=== PATIENT | male | born 1975 | race Caucasian/White ===

== ENCOUNTER 2021-01-07 21:13 | Emergency (ER) | payer BC, SELFPAY ==
[2021-01-07 21:48] VITALS: BP 150/89; PULSE 70; RESP 14; TEMP 36.8; O2SAT 95; BMI 28.2
--- NOTE | 2021-01-07 22:01 | XRR_ITS ---
PROCEDURE INFORMATION: Exam: XR Chest Exam date and time: 01/07/2021 10:36 PM Age: 45 years old Clinical indication: Dyspnea; Additional info: SOB TECHNIQUE: Imaging protocol: XR of the chest Views: 1 view. COMPARISON: No relevant prior studies available. FINDINGS: Lungs: There are some increased interstitial markings seen in the lower hemithoraces bilaterally, left more prominent than right, findings could represent mild pulmonary edema although a bilateral basilar atelectasis or interstitial pneumonitis cannot be entirely excluded. Pleural spaces: Unremarkable. No pleural effusion. No pneumothorax. Heart/Mediastinum: Unremarkable. No cardiomegaly. Bones/joints: Unremarkable. XR/XR chest 1V portable [id number] IMPRESSION: Increased interstitial opacities in the lower hemithoraces, left prominent than right may represent mild asymmetric pulmonary edema although bilateral basilar atelectasis and pneumonitis cannot be entirely excluded.
--- NOTE | 2021-01-07 22:03 | ECG_ITS ---
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
[2021-01-07 22:37] VITALS: O2SAT 97
--- NOTE | 2021-01-07 22:37 | PC.NURSE ---
EKG taken and given to Dr. Sutherland
[2021-01-07 22:47] LABS: Basophils % 0.7 %; Eosinophils # 0.2 10^3/uL (0.0-0.8); Eosinophils % 4.5 %; Hemoglobin 15.6 g/dL (11.7-16.6); Lymphocytes # 1.5 10^3/uL (0.8-4.8); Lymphocytes % 35.2 %; Mean Corpuscular HGB Conc 33.2 g/dL (30.0-36.0); Mean Corpuscular Hemoglobin 32.2 pg (28.0-34.0); Mean Corpuscular Volume 96.9 fL (80-94); Mean Platelet Volume 9.4 fL (7.4-10.4); Monocytes # 0.7 10^3/uL (0.2-0.9); Monocytes % 15.6 %; Neutrophils # 1.84 10^3/uL (1.8-7.7); Neutrophils % 43.5 %; Nucleated Red Blood Cells % 0 %; Platelet Count 207 10^3/cmm (130-400); Red Blood Count 4.85 10^6/uL (4.1-5.3); Red Cell Distribution Width 11.7 % (12.1-15.1); White Blood Count 4.2 10^3/uL (4.0-10.0)
[2021-01-07 23:00] LABS: Lactic Sepsis W/Reflex 1.1 mmol/L (0.5-2.2)
[2021-01-07 23:01] LABS: Troponin(5th) Baseline 7 ng/L (0-15)
[2021-01-07 23:10] LABS: Procalcitonin 0.08 ng/mL (0-0.5)
[2021-01-07 23:11] LABS: D Dimer <= 0.27 ug/mIFEU (0-0.59)
[2021-01-07 23:22] LABS: Alanine Aminotransferase 44 U/L (0-41); Albumin Level 4.4 g/dL (3.5-5.2); Alkaline Phosphatase 96 IU/L (40-130); Anion Gap 13.2 (5-19); Aspartate Amino Transferase 24 U/L (0-40); Blood Urea Nitrogen 14 mg/dL (6-20); Calcium 9.1 mg/dL (8.5-10.5); Carbon Dioxide 26 mmol/L (22-29); Chloride 105 mmol/L (98-107); Globulin 2.5 g/dL (1.3-4.6); Glomerular Filtration Rate 103.6 mL/min (90-130); Glucose 110 mg/dL (65-115); Osmolality Calculated 291 mOsm/kg (285-295); Potassium 4.2 mmol/L (3.5-5.1); Sodium 140 mmol/L (136-145); Total Bilirubin 0.2 mg/dL (0.15-1.2); Total Protein 6.9 g/dL (6.6-8.7)
--- NOTE | 2021-01-07 23:37 | W.ED.COVID ---
HPI - COVID General: Chief Complaint: COVID symptoms Stated Complaint: covid +, SOB and has asthma Time Seen by Provider: 01/07/21 21:43 Triage information: Has fever, cough or shortness of breath. Exposure to COVID + person last 14 days History of Present Illness: HPI Narrative: 45-year-old male presents with right-sided chest discomfort and shortness of breath. He was diagnosed with COVID-19 on the fourth. He notes that he has had a headache, and some upper respiratory symptoms for over a week. Tonight, with a chest discomfort and shortness of breath worsened, he became worried because of his history of asthma. He is not really coughing much. He is not producing any sputum. He has not had a fever. MD complaint: known COVID positive and has COVID symptoms COVID 19 common symptoms: positive cough (Mild), dyspnea, headache(s) and diarrhea (Mild); negative fever(s) or chills COVID 19 other sytmptoms: positive chest pain and pleuritic pain; negative requiring oxygen Onset (ago): day(s) Severity: moderate Pertinent comorbid conditions: COPD/respiratory disease (Asthma history) Treatment prior to arrival: ibuprofen COVID Results: No Data to Display Review of Systems Const: Denies: fever(s) or chills Card: Reports: chest pain Resp: Reports: dyspnea GI: Reports: diarrhea (Mild) Neuro: Reports: headache(s) Physical Exam Const: GENERAL APPEARANCE: well developed ORIENTATION/CONSCIOUSNESS: Yes oriented to person, Yes oriented to place and Yes oriented to time HENMT: COMMON NORMALS: normocephalic, external ears normal and Normal external nose present HEAD & SCALP: normocephalic FACE & SINUS: normal facial exam NOSE: Normal external nose present and No nasal discharge present EXTERNAL EAR: Yes external ears normal Eye: COMMON NORMALS: Equal, round and reactive pupils present, EOMs intact bilaterally and conjunctivae normal EYELID: eyelids normal CONJUNCTIVA: Yes conjunctivae normal PUPIL: Yes Equal, round and reactive pupils present Neck/C-Spine: GENERAL: No tracheal deviation Chest: COMMONS NORMALS: normal inspection of the chest CHEST: No tenderness Resp: COMMON NORMALS: clear to auscultation bilaterally EFFORT & INSPECTION: No tachypneic, No respiratory distress, No retractions, No uses accessory muscles and No tracheal deviation AUSCULTATION: clear to auscultation bilaterally, no rhonchi, no wheezes and lung sounds not diminished Cardio: COMMON NORMALS: regular rate and regular rhythm RATE: regular rate RHYTHM: regular rhythm HEART SOUNDS: no murmurs PERIPHERAL PULSES: radial pulses present GI: INSPECTION: No abdominal distension AUSCULTATION: No Hyperactive bowel sounds present and No Hypoactive bowel sounds present PALPATION: No Guarding due to palpation present (GI) and No Rigid due to palpation PERCUSSION: no dullness to percussion and no tympanic to percussion Neuro: SENSORIUM/ORIENTATION: Yes oriented to person, Yes oriented to place and Yes oriented to time Psych: COMMON NORMALS: mental status grossly normal Skin: COMMON NORMALS: no rashes or lesions noted GENERAL SKIN EXAM: no rashes or lesions noted Course Vital Signs: Vital signs: Vital Signs Temperature 98.3 F 01/07/21 21:48 Pulse Rate 70 01/07/21 21:48 Respiratory Rate 14 01/07/21 21:48 Blood Pressure 150/89 01/07/21 21:48 Pulse Oximetry 97 01/07/21 22:37 MDM - COVID MDM Narrative: Medical decision making narrative: 45-year-old male with a history of asthma. He presents after becoming more short of breath tonight and having some right-sided pleuritic type chest pain. He has known Covid 19. His chest x-ray shows minimal infiltrates. His white blood cell count is 4.2. His pro calcitonin is negative. His D-dimer is nondetectable. His troponin is normal. His EKG shows a sinus bradycardia with no acute ST changes. He will be discharged home. Lab Data: Labs: Lab Results 01/07/21 01/07/21 01/07/21 Range/Units 22:30 22:30 22:30 WBC 4.2 (4.0-10.0) 10^3/ uL RBC 4.85 (4.1-5.3) 10^6/u L Hgb 15.6 (11.7-16.6) g/dL Hct 47.0 (42.0-52.0) % MCV 96.9 H (80-94) fL MCH 32.2 (28.0-34.0) pg MCHC 33.2 (30.0-36.0) g/dL RDW 11.7 L (12.1-15.1) % Plt Count 207 (130-400) 10^3/c mm MPV 9.4 (7.4-10.4) fL Neut % (Auto) 43.5 % Lymph % (Auto) 35.2 % [place] % (Auto) 15.6 % Eos % (Auto) 4.5 % Baso % (Auto) 0.7 % Neut # (Auto) 1.84 (1.8-7.7) 10^3/u L Lymph # (Auto) 1.5 (0.8-4.8) 10^3/u L [place] # (Auto) 0.7 (0.2-0.9) 10^3/u L Eos # (Auto) 0.2 (0.0-0.8) 10^3/u L Baso # (Auto) 0.0 (0.0-0.1) 10^3/u L Nucleated RBC % (a uto) 0 % Nucleated RBCs # 0.0 /100WBC D-Dimer <= 0.27 (0-0.59) ug/mIFE U Sodium 140 (136-145) mmol/L Potassium 4.2 (3.5-5.1) mmol/L Chloride 105 (98-107) mmol/L Carbon Dioxide 26 (22-29) mmol/L Anion Gap 13.2 (5-19) BUN 14 (6-20) mg/dL Creatinine 0.8 (0.7-1.2) mg/dL GFR Calculation 103.6 (90-130) mL/min Glucose 110 (65-115) mg/dL Calculated Osmolal ity 291 (285-295) mOsm/k g Lactic Acid (0.5-2.2) mmol/L Calcium 9.1 (8.5-10.5) mg/dL Total Bilirubin 0.2 (0.15-1.2) mg/dL AST 24 (0-40) U/L ALT 44 H (0-41) U/L Alkaline Phosphata se 96 (40-130) IU/L Troponin T Baselin e (0-15) ng/L C-Reactive Protein 2.0 (0.0-4.9) mg/L Total Protein 6.9 (6.6-8.7) g/dL Albumin 4.4 (3.5-5.2) g/dL Globulin 2.5 (1.3-4.6) g/dL Procalcitonin 0.08 (0-0.5) ng/mL 01/07/21 01/07/21 Range/Units 22:30 22:30 WBC (4.0-10.0) 10^3/ uL RBC (4.1-5.3) 10^6/u L Hgb (11.7-16.6) g/dL Hct (42.0-52.0) % MCV (80-94) fL MCH (28.0-34.0) pg MCHC (30.0-36.0) g/dL RDW (12.1-15.1) % Plt Count (130-400) 10^3/c mm MPV (7.4-10.4) fL Neut % (Auto) % Lymph % (Auto) % [place] % (Auto) % Eos % (Auto) % Baso % (Auto) % Neut # (Auto) (1.8-7.7) 10^3/u L Lymph # (Auto) (0.8-4.8) 10^3/u L [place] # (Auto) (0.2-0.9) 10^3/u L Eos # (Auto) (0.0-0.8) 10^3/u L Baso # (Auto) (0.0-0.1) 10^3/u L Nucleated RBC % (a uto) % Nucleated RBCs # /100WBC D-Dimer (0-0.59) ug/mIFE U Sodium (136-145) mmol/L Potassium (3.5-5.1) mmol/L Chloride (98-107) mmol/L Carbon Dioxide (22-29) mmol/L Anion Gap (5-19) BUN (6-20) mg/dL Creatinine (0.7-1.2) mg/dL GFR Calculation (90-130) mL/min Glucose (65-115) mg/dL Calculated Osmolal ity (285-295) mOsm/k g Lactic Acid 1.1 (0.5-2.2) mmol/L Calcium (8.5-10.5) mg/dL Total Bilirubin (0.15-1.2) mg/dL AST (0-40) U/L ALT (0-41) U/L Alkaline Phosphata se (40-130) IU/L Troponin T Baselin e 7 (0-15) ng/L C-Reactive Protein (0.0-4.9) mg/L Total Protein (6.6-8.7) g/dL Albumin (3.5-5.2) g/dL Globulin (1.3-4.6) g/dL Procalcitonin (0-0.5) ng/mL COVID Results: No Data to Display Discharge Plan Discharge Patient Disposition: Home Clinical Impression: Pneumonia due to 2019 novel coronavirus Condition: Stable Prescriptions: New dexamethasone 6 mg tablet 6 mg PO DAILY Qty: 5 RF: 0 albuterol sulfate 90 mcg/actuation HFA aerosol inhaler 2 inh INHALATION Q4H PRN (Reason: shortness of breath or wheezing) Qty: 6.7 RF: 1 Discharge Orders: Discharge ED (Routine); Ordered 01/07/21 Ordered By: Danilo Sutherland Discharge Diet: Usual diet Discharge Activity: Increase activity as tolerated Patient Instructions: Viral Pneumonia (ED) Activity Restrictions/Additional Instructions: Stay quarantined at home until you are quarantine in the date. Return to the ER for worsening shortness of breath despite treatment, worsening chest pain, mental status changes, inability to control fever, other concerning symptoms. Coding Level of Care Code ED [facility] Director for Reba Lopez
[2021-01-08 00:07] VITALS: BP 136/78; PULSE 61; RESP 17; O2SAT 96
== END 2021-01-08 00:07 | disposition home or self-care (01) ==
PROVIDERS: Emergency Provider Emergency Medicine
DX: U07.1 COVID-19 (principal); J12.82 Pneumonia due to coronavirus disease 2019
CPT/HCPCS: 71045; 80053; 83605; 84145; 84484; 85025; 85378; 86140; 87040; 93005; 99284

== ENCOUNTER 2021-01-14 18:55 | Emergency (ER) | payer BC, SELFPAY ==
--- NOTE | 2021-01-14 19:13 | XRR_ITS ---
PROCEDURE INFORMATION: Exam: XR Chest Exam date and time: 01/14/2021 7:44 PM Age: 45 years old Clinical indication: Dyspnea; Additional info: Pneumonia, covid TECHNIQUE: Imaging protocol: XR of the chest Views: 1 view. COMPARISON: CR XR chest 1V portable [id number] 01/07/2021 10:07 PM FINDINGS: Lungs: Mild coarsening of the interstitial markings, unchanged. No airspace infiltrates. Pleural spaces: Unremarkable. No pleural effusion. No pneumothorax. Heart/Mediastinum: No cardiomegaly. Bones/joints: Degenerative spine changes are noted. XR/XR chest 1V portable [id number] IMPRESSION: 1. Mild coarsening of the interstitial markings, unchanged. No airspace infiltrates. 2. There is no interval change from the prior examination. No radiographic evidence of acute pneumonia.
[2021-01-14 19:21] VITALS: BP 155/75; PULSE 74; RESP 16; TEMP 36.9; O2SAT 96; BMI 29.5
[2021-01-14 20:37] VITALS: O2SAT 94
[2021-01-14 21:07] LABS: Alanine Aminotransferase 45 U/L (0-41); Albumin Level 3.9 g/dL (3.5-5.2); Alkaline Phosphatase 89 IU/L (40-130); Anion Gap 11.8 (5-19); Aspartate Amino Transferase 17 U/L (0-40); Blood Urea Nitrogen 18 mg/dL (6-20); C Reactive Protein 0.6 mg/L (0.0-4.9); Calcium 8.9 mg/dL (8.5-10.5); Carbon Dioxide 29 mmol/L (22-29); Chloride 101 mmol/L (98-107); Globulin 2.5 g/dL (1.3-4.6); Glomerular Filtration Rate 90.4 mL/min (90-130); Glucose 100 mg/dL (65-115); Osmolality Calculated 288 mOsm/kg (285-295); Potassium 3.8 mmol/L (3.5-5.1); Sodium 138 mmol/L (136-145); Total Bilirubin 0.2 mg/dL (0.15-1.2); Total Protein 6.4 g/dL (6.6-8.7)
[2021-01-14 21:13] VITALS: PULSE 73; RESP 17; O2SAT 94
--- NOTE | 2021-01-14 21:14 | ED_ITS ---
HPI - COVID General: Chief Complaint: COVID symptoms Stated Complaint: Headache, fatigue, SOB, CONGES covid + in covid wr Time Seen by Provider: 01/14/21 20:28 Triage information: Has fever, cough or shortness of breath . No known COVID + exposure last 14 days History of Present Illness: HPI Narrative: 45-year-old male with a history of asthma. He has COVID-19, and was off quarantine yesterday. He presents with continued symptoms. He was placed on steroids on the last visit last weekend, and finished those 2 days ago. He notes immediately following his popping steroids, of a resurgence of chest discomfort mainly burning sensation in his bilateral and some shortness of breath. Shortness of breath worsens with exertion. He has had some wheezing as well. He says his albuterol inhaler helps to some degree with this. Minimal cough. Does have some phlegm in his throat. No diarrhea. He does have a headache intermittently. MD complaint: known COVID positive Prior covid testing: yes, results known COVID 19 common symptoms: positive cough, non-productive cough, dyspnea, fatigue, headache(s) and throat pain (Mild); negative fever(s), chills, productive cough, body aches, nausea, vomiting or diarrhea COVID 19 other sytmptoms: positive chest pain (Burning to bilateral lower chest) Severity: moderate and slowly worsening Pertinent comorbid conditions: diabetes, hypertension, heart disease and other (Asthma) COVID Results: No Data to Display Review of Systems Const: Reports: fatigue; Denies: fever(s), chills or body aches ENMT: Reports: throat pain (Mild) Card: Reports: chest pain (Burning to bilateral lower chest) Resp: Reports: dyspnea and non-productive cough; Denies: productive cough GI: Denies: nausea, vomiting or diarrhea Neuro: Reports: headache(s) Physical Exam Const: GENERAL APPEARANCE: well developed ORIENTATION/CONSCIOUSNESS: Yes oriented to person, Yes oriented to place and Yes oriented to time HENMT: COMMON NORMALS: normocephalic, external ears normal and Normal external nose present HEAD & SCALP: normocephalic FACE & SINUS: normal facial exam NOSE: Normal external nose present and No nasal discharge present EXTERNAL EAR: Yes external ears normal Eye: COMMON NORMALS: Equal, round and reactive pupils present, EOMs intact bilaterally and conjunctivae normal EYELID: eyelids normal CONJUNCTIVA: Yes conjunctivae normal PUPIL: Yes Equal, round and reactive pupils present Neck/C-Spine: GENERAL: No tracheal deviation Chest: COMMONS NORMALS: normal inspection of the chest CHEST: No tenderness Resp: COMMON NORMALS: clear to auscultation bilaterally EFFORT & INSPECTION: No tachypneic, No respiratory distress, No retractions, No uses accessory muscles and No tracheal deviation AUSCULTATION: clear to auscultation bilaterally, no rhonchi, no wheezes and lung sounds not diminished Cardio: COMMON NORMALS: regular rate and regular rhythm RATE: regular rate RHYTHM: regular rhythm HEART SOUNDS: no murmurs PERIPHERAL PULSES: radial pulses present GI: INSPECTION: No abdominal distension AUSCULTATION: No Hyperactive bowel sounds present and No Hypoactive bowel sounds present PALPATION: No Guarding due to palpation present (GI) and No Rigid due to palpation PERCUSSION: no dullness to percussion and no tympanic to percussion Neuro: SENSORIUM/ORIENTATION: Yes oriented to person, Yes oriented to place and Yes oriented to time Psych: COMMON NORMALS: mental status grossly normal Skin: COMMON NORMALS: no rashes or lesions noted GENERAL SKIN EXAM: no rashes or lesions noted Course Vital Signs: Vital signs: Vital Signs Temperature 98.4 F 01/14/21 19:21 Pulse Rate 62 01/14/21 22:48 Respiratory Rate 12 01/14/21 22:48 Blood Pressure 122/69 01/14/21 22:48 Pulse Oximetry 96 01/14/21 22:48 MDM - COVID MDM Narrative: Medical decision making narrative: 45-year-old male with a history of COVID-19. He also has a history of asthma. He noted increase in wheezing with an increase in shortness of breath and burning in his chest following stopping steroids a couple of days ago. His albuterol inhaler is helping. His oxygen saturations have been above 94% on room air with respiratory rates from 15-24. His heart rate is 60. He will be discharged home on a tapering dose of steroid and will be covered with doxycycline. His chest x-ray looks mildly improved from prior. Lab Data: Labs: Lab Results 01/14/21 01/14/21 01/14/21 Range/Units 20:20 20:31 20:31 WBC 10.1 H (4.0-10.0) 10^3/ uL RBC 4.74 (4.1-5.3) 10^6/u L Hgb 15.2 (11.7-16.6) g/dL Hct 46.2 (42.0-52.0) % MCV 97.5 H (80-94) fL MCH 32.1 (28.0-34.0) pg MCHC 32.9 (30.0-36.0) g/dL RDW 11.8 L (12.1-15.1) % Plt Count 244 (130-400) 10^3/c mm MPV 9.7 (7.4-10.4) fL Neut % (Auto) 50.0 % Lymph % (Auto) 32.1 % [place] % (Auto) 10.2 % Eos % (Auto) 2.7 % Baso % (Auto) 0.8 % Neut # (Auto) 5.04 (1.8-7.7) 10^3/u L Lymph # (Auto) 3.2 (0.8-4.8) 10^3/u L [place] # (Auto) 1.0 H (0.2-0.9) 10^3/u L Eos # (Auto) 0.3 (0.0-0.8) 10^3/u L Baso # (Auto) 0.1 (0.0-0.1) 10^3/u L Nucleated RBC % (a uto) 0 % Nucleated RBCs # 0.0 /100WBC D-Dimer <= 0.27 (0-0.59) ug/mIFE U Sodium 138 (136-145) mmol/L Potassium 3.8 (3.5-5.1) mmol/L Chloride 101 (98-107) mmol/L Carbon Dioxide 29 (22-29) mmol/L Anion Gap 11.8 (5-19) BUN 18 (6-20) mg/dL Creatinine 0.9 (0.7-1.2) mg/dL GFR Calculation 90.4 (90-130) mL/min Glucose 100 (65-115) mg/dL Calculated Osmolal ity 288 (285-295) mOsm/k g Calcium 8.9 (8.5-10.5) mg/dL Total Bilirubin 0.2 (0.15-1.2) mg/dL AST 17 (0-40) U/L ALT 45 H (0-41) U/L Alkaline Phosphata se 89 (40-130) IU/L C-Reactive Protein 0.6 (0.0-4.9) mg/L Total Protein 6.4 L (6.6-8.7) g/dL Albumin 3.9 (3.5-5.2) g/dL Globulin 2.5 (1.3-4.6) g/dL COVID Results: No Data to Display Discharge Plan Discharge Patient Disposition: Home Clinical Impression: Pneumonia due to 2019 novel coronavirus Condition: Stable Prescriptions: New prednisone 10 mg tablet See Rx Instructions .ROUTE .COMPLEX Qty: 28 RF: 0 doxycycline hyclate 100 mg capsule 100 mg PO BID 7 Days Qty: 14 RF: 0 No Action dexamethasone 6 mg tablet 6 mg PO DAILY Qty: 5 RF: 0 albuterol sulfate 90 mcg/actuation HFA aerosol inhaler 2 inh INHALATION Q4H PRN (Reason: shortness of breath or wheezing) Qty: 6.7 RF: 1 Discharge Orders: Discharge ED (Routine); Ordered 01/14/21 Ordered By: Danilo Sutherland Discharge Diet: Usual diet Discharge Activity: Increase activity as tolerated Patient Instructions: Asthma (ED), Viral Pneumonia (ED) Activity Restrictions/Additional Instructions: Return for worsening chest discomfort or shortness of breath despite treatment, fever greater than 100 despite 2-3 doses of antibiotics, any worsening or other concerning symptoms peer Coding Level of Care Code ED Agricultural Equipment 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
[2021-01-14 21:24] LABS: Basophils # 0.1 10^3/uL (0.0-0.1); Basophils % 0.8 %; Eosinophils # 0.3 10^3/uL (0.0-0.8); Eosinophils % 2.7 %; Hematocrit 46.2 % (42.0-52.0); Hemoglobin 15.2 g/dL (11.7-16.6); Lymphocytes # 3.2 10^3/uL (0.8-4.8); Lymphocytes % 32.1 %; Mean Corpuscular HGB Conc 32.9 g/dL (30.0-36.0); Mean Corpuscular Hemoglobin 32.1 pg (28.0-34.0); Mean Corpuscular Volume 97.5 fL (80-94); Mean Platelet Volume 9.7 fL (7.4-10.4); Monocytes % 10.2 %; Neutrophils # 5.04 10^3/uL (1.8-7.7); Nucleated Red Blood Cells % 0 %; Platelet Count 244 10^3/cmm (130-400); Red Blood Count 4.74 10^6/uL (4.1-5.3); Red Cell Distribution Width 11.8 % (12.1-15.1); White Blood Count 10.1 10^3/uL (4.0-10.0)
[2021-01-14 21:40] LABS: D Dimer <= 0.27 ug/mIFEU (0-0.59)
[2021-01-14 22:22] VITALS: BP 117/84; PULSE 69; RESP 14; O2SAT 95
[2021-01-14] MEDS: dexamethasone 4 mg Tablet 10 MG PO (22:41)
[2021-01-14 22:48] VITALS: BP 122/69; PULSE 62; RESP 12; O2SAT 96
== END 2021-01-14 22:48 | disposition home or self-care (01) ==
PROVIDERS: Nurse Practitioner Family; Emergency Provider Emergency Medicine
DX: U07.1 COVID-19 (principal); J12.82 Pneumonia due to coronavirus disease 2019
CPT/HCPCS: 71045; 80053; 85025; 85378; 86140; 99283; J8540

== ENCOUNTER → 2021-01-24 12:51 | Outpatient (BNVA) | payer SELFPAY | PROVIDERS: PCP Nurse Practitioner Family; Visit Provider Nurse Practitioner Family | DX: R06.02 Shortness of breath (principal); U07.1 COVID-19; J12.89 Other viral pneumonia | CPT/HCPCS: 71046 ==

== ENCOUNTER → 2021-04-14 14:06 | Outpatient (BNVA) | payer SELFPAY | PROVIDERS: PCP Nurse Practitioner Family; Visit Provider Nurse Practitioner Family | DX: R10.84 Generalized abdominal pain (principal); R53.83 Other fatigue; Z79.899 Other long term (current) drug therapy; Z13.6 Encounter for screening for cardiovascular disorders; E55.9 Vitamin D deficiency, unspecified | CPT/HCPCS: 74018 ==

== ENCOUNTER → 2021-04-19 13:06 | Outpatient (BNVA) | payer SELFPAY | PROVIDERS: PCP Nurse Practitioner Family; Visit Provider Nurse Practitioner Family | DX: E55.9 Vitamin D deficiency, unspecified (principal) | CPT/HCPCS: 85025 ==

== ENCOUNTER → 2021-04-21 16:10 | Outpatient (BNVA) | payer SELFPAY | PROVIDERS: PCP Nurse Practitioner Family; Visit Provider Nurse Practitioner Family | DX: R10.84 Generalized abdominal pain (principal) | CPT/HCPCS: 82270 ==

== ENCOUNTER → 2021-04-27 10:02 | Outpatient (BNVA) | payer SELFPAY | PROVIDERS: PCP Nurse Practitioner Family; Visit Provider Nurse Practitioner Family | DX: R10.84 Generalized abdominal pain (principal); Z13.6 Encounter for screening for cardiovascular disorders; R53.83 Other fatigue; Z79.899 Other long term (current) drug therapy; E55.9 Vitamin D deficiency, unspecified | CPT/HCPCS: 80053; 80061; 81003; 82150; 83036; 83690; 84439; 84443; 85025; 85651; 86140 ==

== ENCOUNTER 2021-05-12 11:33 | Outpatient (CLI) | payer SELFPAY ==
--- NOTE | 2021-05-12 11:40 | XR_ITS ---
WS: [id number] KUB, AP view, 05/12/2021 Clinical Data: R10.9 - Unspecified abdominal pain Comparison: KUB, 04/14/2021. Findings: No abnormal intra-abdominal masses or calcifications are seen. There is no evidence of any bowel dila tation or obstruction. There is fecal material in a sending colon. The bladder is full. XR/XR KUB [id number] Impression: Negative KUB.
--- NOTE | 2021-05-12 12:30 | US_ITS ---
WS: [id number] Complete ABDOMINAL ULTRASOUND HISTORY: R10.9 - Unspecified abdominal pain COMPARISON: None available. Liver: 20.4 cm in length. Liver is mildly enlarged. No mass or bile duct dilatation. Gallbladder: Normally distended with no gallstones, wall thickening or pericholecystic fluid. Gallbladder wall thickness: 0.2 cm. Pancreas: Normal size and echogenicity. CBD: 0.5 cm. Right kidney: 11.7 cm x 4.7 cm x 5.0 cm. No mass, cortical thickening or hydronephrosis. Left kidney: 13.3 cm x 5.3 cm x 6.7 cm. No mass, cortical thickening or hydronephrosis. Spleen: Normal size and echogenicity. Abdominal aorta and IVC are within normal limits. No ascites. US/US abdomen complete* [id number] IMPRESSION: 1. Normal gallbladder. 2. No bile duct dilatation. 3. Minimal hepatic enlargement.
== END 2021-05-12 11:34 | disposition home or self-care (01) ==
LOC: RAD 11:35
PROVIDERS: PCP Nurse Practitioner Family; Visit Provider Nurse Practitioner Family
DX: R10.9 Unspecified abdominal pain (principal)
CPT/HCPCS: 74018; 76700

== ENCOUNTER 2021-06-09 14:26 | Outpatient (CLI) | payer SELFPAY ==
--- NOTE | 2021-06-09 14:32 | XRR_ITS ---
PROCEDURE INFORMATION: Exam: XR Chest Exam date and time: 06/09/2021 2:32 PM Age: 45 years old Clinical indication: Cough; Additional info: R05 - cough TECHNIQUE: Imaging protocol: XR of the chest. Views: 2 views. COMPARISON: CR XR chest 2V* [id number] 01/24/2021 1:06 PM FINDINGS: Lungs: Unremarkable. No consolidation. Pleural spaces: Unremarkable. No pleural effusion. No pneumothorax. Heart/Mediastinum: Unremarkable. No cardiomegaly. Bones/joints: Unremarkable. XR/XR chest 2V* [id number] IMPRESSION: No acute findings.
== END 2021-06-09 14:27 | disposition home or self-care (01) ==
PROVIDERS: PCP Nurse Practitioner Family; Visit Provider Nurse Practitioner Family
DX: R05 Cough (principal)
CPT/HCPCS: 71046

== ENCOUNTER 2021-06-15 10:44 | Emergency (ER) | payer SELFPAY ==
[2021-06-15 11:22] VITALS: BP 153/82; PULSE 65; RESP 18; TEMP 36.7; O2SAT 95; BMI 28.8
[2021-06-15 11:27] VITALS: BP 129/69; PULSE 66; RESP 15; O2SAT 93
--- NOTE | 2021-06-15 11:40 | CT_ITS ---
WS: [id number] CT scan of the abdomen and pelvis with IV contrast. Additional two-dimensional coronal and sagittal r econstruction was performed. 06/15/2021 Clinical Data: constipation, abdominal distention Comparison: None. DLP: 1859.[address] scans at [facility] use at least one of these dose optimization techniques: automat ed exposure control; mA and/or kV adjustment per patient size (includes targeted exams where dose is matched to clinical indication); or iterative reconstruction. Findings: The lower lungs show no nodules, masses or effusions. There is a small hiatal hernia. The liver, gall bladder, spleen, adrenal glands and pancreas are normal. There is a small cyst in the posterior aspec t of the right lobe of the liver. The kidneys show equal bilateral contrast excretion with small renal cortical cysts and 0.3 cm nonob structing central right and left renal calculi. No hydronephrosis or renal masses are seen.. The abdominal aorta is normal in size. No appendicitis or diverticulitis is seen. The stomach, small bowel and colon are unremarkable. No ab scess, adenopathy, ascites, mass, obstruction or free air is seen. The bladder is unremarkable. No inguinal hernia is seen. The bones of the lower thorax, lumbar spine, pelvis, and hips show degenerative disc disease at L1-L 2 and L5-S1 with subluxation of 0.6 cm of L5 on S1. There is a bilateral spondylolysis at L5-S1. CT/CT abdomen pelvis w con* [id number] Impression: Negative for acute intra-abdominal or pelvic abnormalities.
--- NOTE | 2021-06-15 11:43 | ED_ITS ---
HPI - General Adult General: Chief complaint: General Medical Stated complaint: constipated, laxatives didnt work Time Seen by Provider: 06/15/21 11:29 Source: patient Mode of arrival: ambulatory Limitations: no limitations History of Present Illness: HPI narrative: This is a 45 year old male with no significant past medical history who has been having bowel issues for several months, however it is getting worse. He has early satiety, bloating, abdominal distention, constipation. His last regular bowel movement was about 2 weeks ago which is not normal. He has had either watery or loose stools since then. Every time he eats he feels full very easily and so has not eaten much in the last few days. He went to see his primary care provider who did an abdominal x- ray and it showed constipation. He has tried several laxatives but that has not helped so he is here to be evaluated as he has significant pain in his abdomen. Onset (ago): month(s) Location: abdomen Severity: severe Quality: aching Pain Consistency: constant Relieving factors: none Exacerbating factors: none Associated symptoms: Reports nausea; Deny chest pain, confusion, cough, diaphoresis, decreased appetite, dyspnea, fevers/chills, headache(s), malaise, rash, palpitations, seizures, short of breath, syncope, vomiting or weakness Treatments prior to arrival: other (constipation) Review of Systems General: Reports: 10 or more systems reviewed and unremarkable except in HPI and below Const: Denies: malaise or diaphoresis Card: Denies: chest pain, palpitations or syncope Resp: Denies: dyspnea GI: Reports: nausea; Denies: vomiting Skin/Breast: Denies: rash Neuro: Denies: headache(s) or confusion PFSH ED PFSH: Medical History (Reviewed 06/15/21 @ 12:02 by Nova Zapata MD, [facility] [place]) Abdominal pain Asthma Fatigue Hypertension screen Lower respiratory infection Medication management Vitamin D deficiency Family History (Reviewed 06/15/21 @ 12:02 by Nova Zapata MD, [facility] [place]) Father Cancer colon Social History (Reviewed 06/15/21 @ 12:02 by Nova Zapata MD, [facility] [place]) Alcohol intake: never Physical Exam Const: COMMON NORMALS: no acute distress, average body habitus, patient oriented x3, no limitations, healthy appearing, alert and well nourished HENMT: COMMON NORMALS: normocephalic, atraumatic and moist oral mucous membranes HEAD & SCALP: normocephalic and atraumatic Neck/C-Spine: COMMON NORMALS: no meningeal signs and no JVD Resp: COMMON NORMALS: normal respiratory effort, No retractions, No use of accessory muscles, clear to auscultation bilaterally and percussion normal AUSCULTATION: clear to auscultation bilaterally PERCUSSION: percussion normal Cardio: COMMON NORMALS: no JVD, regular rate, regular rhythm, S1 normal heart sound present, S2 normal heart sound present, No gallops present (Cardio), No clicks present (Cardio), No murmurs present (Cardio), No rub (Cardio) and Peripheral pulses 2+ throughout RATE: regular rate RHYTHM: regular rhythm HEART SOUNDS: S1 normal heart sound present and S2 normal heart sound present PERIPHERAL PULSES: Peripheral pulses 2+ throughout GI: COMMON NORMALS: Soft to palpation, No hepatosplenomegaly present, no masses and no bruits INSPECTION: Yes abdominal distension (mild) AUSCULTATION: Yes normoactive bowel sounds PALPATION: Yes Soft to palpation, Yes Tenderness to palpation present (GI) (epigastric) and Yes No hepatosplenomegaly present Extremity: COMMON NORMALS: normal to inspection, full ROM, capillary refill normal, no calf tenderness and no pedal edema Neuro: COMMON NORMALS: patient oriented x3 SENSORIUM/ORIENTATION: Yes alert MENINGEAL SIGNS: Yes no meningeal signs Course Reevaluation(s): Reevaluation #1: Discussed his lab and imaging findings with him. Unremarkable for acute findings. CT scan negative for constipation or other acute findings. Since his father had colon cancer he is strongly advised to get a colonoscopy f or further evaluation of his colon. But other than that will not give him any new medications. He is to continue his current medications. He voiced understanding and is in agreement with the plan. Time: 14:20 Vital Signs: Vital signs: Vital Signs Temperature 98.1 F 06/15/21 11:22 Pulse Rate 76 06/15/21 14:36 Respiratory Rate 18 06/15/21 14:36 Blood Pressure 128/86 06/15/21 14:36 Pulse Oximetry 94 06/15/21 14:36 MDM - General Adult MDM Narrative: Medical decision making narrative: 45-year-old male who presents to the emergency department with constipation and fears that the laxatives were not working. In the emergency department work-up was unremarkable including a CT scan of his abdomen and pelvis which did not show constipation. There were no other acute findings on imaging. He has a family history of colon cancer in his father and he is advised to get a colonoscopy as soon as possible to make sure he does not have colon cancer or other intestinal abnormalities. Meanwhile he is discharged home with no new orders. Medical Records: Attestation: I reviewed the patient's medical records. Lab Data: Attestation: I reviewed the patient's lab results. Labs: Lab Results 06/15/21 06/15/21 06/15/21 Range/Units 11:54 11:54 12:11 WBC 6.9 (4.0-10.0) 10^3/ uL RBC 5.22 (4.1-5.3) 10^6/u L Hgb 16.8 H (11.7-16.6) g/dL Hct 49.7 (42.0-52.0) % MCV 95.2 H (80-94) fL MCH 32.2 (28.0-34.0) pg MCHC 33.8 (30.0-36.0) g/dL RDW 11.7 L (12.1-15.1) % Plt Count 275 (130-400) 10^3/c mm MPV 9.2 (7.4-10.4) fL Neut % (Auto) 58.4 % Lymph % (Auto) 25.3 % Brooks % (Auto) 10.3 % Eos % (Auto) 5.2 % Baso % (Auto) 0.7 % Neut # (Auto) 4.04 (1.8-7.7) 10^3/u L Lymph # (Auto) 1.8 (0.8-4.8) 10^3/u L Brooks # (Auto) 0.7 (0.2-0.9) 10^3/u L Eos # (Auto) 0.4 (0.0-0.8) 10^3/u L Baso # (Auto) 0.1 (0.0-0.1) 10^3/u L Nucleated RBC % (a uto) 0 % Nucleated RBCs # 0.0 /100WBC Sodium 138 (136-145) mmol/L Potassium 4.5 (3.5-5.1) mmol/L Chloride 103 (98-107) mmol/L Carbon Dioxide 27 (22-29) mmol/L Anion Gap 12.5 (5-19) BUN 9 (6-20) mg/dL Creatinine 0.8 (0.7-1.2) mg/dL GFR Calculation 103.6 (90-130) mL/min Glucose 104 (65-115) mg/dL Calculated Osmolal ity 285 (285-295) mOsm/k g Calcium 9.1 (8.5-10.5) mg/dL Total Bilirubin 0.6 (0.15-1.2) mg/dL AST 26 (0-40) U/L ALT 43 H (0-41) U/L Alkaline Phosphata se 132 H (40-130) IU/L C-Reactive Protein 4.0 (0.0-4.9) mg/L Total Protein 7.2 (6.6-8.7) g/dL Albumin 4.6 (3.5-5.2) g/dL Globulin 2.6 (1.3-4.6) g/dL Lipase 27 (13-60) U/L Urine Color Yellow (Yellow) Urine Appearance Clear (CLEAR) Urine pH 8 H (5-7) Ur Specific Gravit y 1.010 (1.005-1.030) Urine Protein Neg (Negative) Urine Glucose (UA) Norm (Normal) Urine Ketones Negative (Negative) Urine Blood Neg (Negative) Urine Nitrate Negative (Negative) Urine Bilirubin Neg (Negative) Prot Sulfosalicyli c Acd Negative (Negative) Urine Urobilinogen Norm (Negative) mg/dL Ur Leukocyte Tatianna ase Negative (Negative) Imaging Data^: CT Abd/Pel: Attestation: I personally reviewed and interpreted this imaging study as follows: Radiologist's impression: [address] [id number] Scan ReportSigned Patient: Cha Pitts #: [id number]: 1975Acct#:[id number]/Sex: 45 / MADM Date: 06/15/21Loc: ERRoom/Bed:Attending Dr: Ordering Provider/Ordering MD: Nova Zapata MD, [facility] [place] Date of Service: 06/15/21 Procedure(s): CT abdomen pelvis w con* [id number] Accession Number(s): [id number] Report Number: [id number] WS: [id number] CT scan of the abdomen and pelvis with IV contrast. Additional two-dimensional coronal and sagittal reconstruction was performed. 06/15/2021 Clinical Data: constipation, abdominal distention Comparison: None. DLP: 1859.[address] scans at [facility] use at least one of these dose optimization techniques: automated exposure control; mA and/or kV adjustment per patient size (includes targeted exams where dose is matched to clinical indication); or iterative reconstruction. Findings: The lower lungs show no nodules, masses or effusions. There is a small hiatal hernia. The liver, gallbladder, spleen, adrenal glands and pancreas are normal. There is a small cyst in the posterior aspect of the right lobe of the liver. The kidneys show equal bilateral contrast excretion with small renal cortical cysts and 0.3 cm nonobstructing central right and left renal calculi. No hydronephrosis or renal masses are seen.. The abdominal aorta is normal in size. No appendicitis or diverticulitis is seen. The stomach, small bowel and colon are unremarkable. No abscess, adenopathy, ascites, mass, obstruction or free air is seen. The bladder is unremarkable. No inguinal hernia is seen. The bones of the lower thorax, lumbar spine, pelvis, and hips show degenerative disc disease at L1-L2 and L5-S1 with subluxation of 0.6 cm of L5 on S1. There is a bilateral spondylolysis at L5-S1. CT/CT abdomen pelvis w con* [id number] Impression: Negative for acute intra-abdominal or pelvic abnormalities. Dictated By:Katelin Reddy MDSigned By:Katelin Reddy MDSigned Date/Time:06/15/21 1406DD/ 1359 Discharge Plan Discharge Patient Disposition: Home Clinical Impression: Abdominal bloating with cramps Abdominal pain Qualifiers: Abdominal location: unspecified location Qualified Code(s): R10.9 - Unspecified abdominal pain Condition: Stable Prescriptions: New dicyclomine 10 mg capsule 10 mg PO TID Qty: 30 RF: 0 Continued montelukast [Singulair] 10 mg tablet 10 mg PO DAILY RF: 0 esomeprazole magnesium [Nexium] 40 mg capsule,delayed release(DR/EC) 40 mg PO DAILY Qty: 30 RF: 2 budesonide-formoterol [Symbicort] 160-4.5 mcg/actuation HFA aerosol inhaler 2 puff inhalation BID RF: 0 albuterol sulfate 90 mcg/actuation HFA aerosol inhaler 2 puff inhalation Q6H PRN (Reason: Shortness Of Breath) RF: 0 Discharge Orders: Discharge ED (Routine); Ordered 06/15/21 Ordered By: Nova Zapata Referrals: Debbie Villafana FNP [Primary Care Provider] - 1-3 days Discharge Diet: Usual diet Discharge Activity: Increase activity as tolerated Patient Instructions: Abdominal Pain (ED) Activity Restrictions/Additional Instructions: Return for any new or worsening symptoms. Follow-up with your primary care provider within 3 days. Continue your current medications. Take the new medication as needed for pain and bloating. It is important that you get your colonoscopy as soon as possible so make sure your primary care provider has made the arrangements for you to get a colonoscopy. Coding Level of Care Code ED Infertility Nurse for Chg Fwd Exam Detailed
[2021-06-15 11:57] VITALS: BP 129/69; PULSE 60; RESP 15; O2SAT 93
[2021-06-15 12:21] LABS: Add Urine Microscopic? NO; Charge for UA Resulting for Rev
[2021-06-15 12:24] LABS: Basophils # 0.1 10^3/uL (0.0-0.1); Basophils % 0.7 %; Eosinophils # 0.4 10^3/uL (0.0-0.8); Eosinophils % 5.2 %; Hematocrit 49.7 % (42.0-52.0); Hemoglobin 16.8 g/dL (11.7-16.6); Lymphocytes # 1.8 10^3/uL (0.8-4.8); Lymphocytes % 25.3 %; Mean Corpuscular HGB Conc 33.8 g/dL (30.0-36.0); Mean Corpuscular Hemoglobin 32.2 pg (28.0-34.0); Mean Corpuscular Volume 95.2 fL (80-94); Mean Platelet Volume 9.2 fL (7.4-10.4); Monocytes # 0.7 10^3/uL (0.2-0.9); Monocytes % 10.3 %; Neutrophils # 4.04 10^3/uL (1.8-7.7); Neutrophils % 58.4 %; Nucleated Red Blood Cells % 0 %; Platelet Count 275 10^3/cmm (130-400); Red Blood Count 5.22 10^6/uL (4.1-5.3); Red Cell Distribution Width 11.7 % (12.1-15.1); White Blood Count 6.9 10^3/uL (4.0-10.0)
[2021-06-15 12:34] LABS: Alanine Aminotransferase 43 U/L (0-41); Albumin Level 4.6 g/dL (3.5-5.2); Alkaline Phosphatase 132 IU/L (40-130); Anion Gap 12.5 (5-19); Aspartate Amino Transferase 26 U/L (0-40); Blood Urea Nitrogen 9 mg/dL (6-20); Calcium 9.1 mg/dL (8.5-10.5); Carbon Dioxide 27 mmol/L (22-29); Chloride 103 mmol/L (98-107); Globulin 2.6 g/dL (1.3-4.6); Glomerular Filtration Rate 103.6 mL/min (90-130); Glucose 104 mg/dL (65-115); Lipase 27 U/L (13-60); Osmolality Calculated 285 mOsm/kg (285-295); Potassium 4.5 mmol/L (3.5-5.1); Sodium 138 mmol/L (136-145); Total Bilirubin 0.6 mg/dL (0.15-1.2); Total Protein 7.2 g/dL (6.6-8.7)
[2021-06-15 12:50] LABS: Bilirubin Urine Neg (Negative); Blood Urine Neg (Negative); Glucose Urine UA Norm (Normal); Ketones Urine Negative (Negative); Leukocyte Esterase Urine Negative (Negative); Nitrate Urine Negative (Negative); Protein Urine Neg (Negative); Sulfosalicylic Acid Urine Negative (Negative); Urine Appearance Clear (CLEAR); Urine Color Yellow (Yellow); Urobilinogen Urine Norm (Negative); pH Urine 8 (5-7)
[2021-06-15 13:00] VITALS: BP 104/78; PULSE 86; RESP 18; O2SAT 94
[2021-06-15] MEDS: iohexol 300 mg/mL 100 mL Btl IV (13:40)
[2021-06-15 14:19] VITALS: BP 105/72; RESP 16; O2SAT 93
[2021-06-15 14:36] VITALS: BP 128/86; PULSE 76; RESP 18; O2SAT 94
== END 2021-06-15 14:38 | disposition home or self-care (01) ==
PROVIDERS: Emergency Provider Family Medicine; PCP Nurse Practitioner Family
DX: R14.0 Abdominal distension (gaseous) (principal); R10.9 Unspecified abdominal pain; J45.909 Unspecified asthma, uncomplicated; Z80.0 Family history of malignant neoplasm of digestive organs
CPT/HCPCS: 74177; 80053; 81003; 83690; 85025; 86140; 99283; Q9967

== ENCOUNTER 2021-06-20 11:51 | Outpatient (CLI) | payer SELFPAY ==
--- NOTE | 2021-06-20 11:58 | XRR_ITS ---
PROCEDURE INFORMATION: Exam: XR Abdomen Exam date and time: 06/20/2021 11:58 AM Age: 45 years old Clinical indication: Patient HX: Constipation. PT has been dealing with constipation for many months. He states it is getting worse and he drank magnesium and the liquid to clean you for a colonoscopy. However, both were non effective. ; Additional info: K59.00 - constipation, unspecified TECHNIQUE: Imaging protocol: XR of the abdomen. Views: Frontal supine view of the abdomen. 1 View. Total images: 2 COMPARISON: CT abdomen pelvis w con* [id number] 06/15/2021 1:35 PM FINDINGS: Lungs: Benign granulomatous disease of the lung is noted. Gastrointestinal tract: Bowel gas pattern is nondistended and nonobstructive. Bones/joints: Osseous structures are unchanged from the prior exam. Other findings: Mild stool burden. XR/XR KUB [id number] IMPRESSION: 1. Normal bowel gas pattern 2. Mild stool burden.
[2021-06-20 13:15] LABS: 25 Hydroxy Vitamin D 31 ng/mL (30-100)
== END 2021-06-20 11:52 | disposition home or self-care (01) ==
PROVIDERS: Nurse Practitioner Family; PCP Nurse Practitioner Family; Visit Provider Nurse Practitioner Family
DX: K59.00 Constipation, unspecified (principal); E55.9 Vitamin D deficiency, unspecified
CPT/HCPCS: 36415; 74018; 82306

== ENCOUNTER 2021-08-29 09:41 | Outpatient (CLI) | payer SELFPAY ==
--- NOTE | 2021-08-29 09:48 | NM_ITS ---
WS: [id number] NUCLEAR MEDICINE HIDA SCAN WITH GALLBLADDER EJECTION FRACTION HISTORY: ABDOMINAL DISTENSION (GASEOUS) COMPARISON: None available. TECHNIQUE: The patient was intravenously injected with 4.9 mCi of TC99m Mebrofenin. Immediate imaging over the right upper quadrant was followed by 5 minute image and additional images for a total of 60 minutes. Normal uptake of radiotracer throughout the liver. Activity identified in the gallbladder at 15 minutes and well distended by 60 minutes. Activity in the proximal small bowel was seen by 15 minutes. Good washout of the radiotracer from the liver by 60 minutes. The patient then drank 8 ounces of Ensure Plus. Ejection fraction at 60 minutes was 79%. Normal GB ej ection fraction is 35-75%. Post fatty meal symptoms: None. NM/NM hepatobiliary w phar* [id number] IMPRESSION: 1. Normal HIDA scan. 2. Normal gallbladder ejection fraction.
== END 2021-08-29 09:42 | disposition home or self-care (01) ==
LOC: NM 09:42
PROVIDERS: PCP Nurse Practitioner Family; Visit Provider Nurse Practitioner
DX: R14.0 Abdominal distension (gaseous) (principal)
CPT/HCPCS: 78227; A9537

== ENCOUNTER → 2022-01-19 11:43 | Outpatient (BNVA) | payer SELFPAY | PROVIDERS: PCP Nurse Practitioner Family; Visit Provider Nurse Practitioner Family | DX: R68.89 Other general symptoms and signs (principal); J10.1 Influenza due to other identified influenza virus with other respiratory manifestations | CPT/HCPCS: 87400 ==

== ENCOUNTER 2022-01-21 17:11 | Emergency (ER) | payer SELFPAY ==
[2022-01-21 17:41] VITALS: BP 146/106; PULSE 68; RESP 16; TEMP 36.8; O2SAT 95; BMI 28.5
--- NOTE | 2022-01-21 18:57 | ECG_ITS ---
[facility] Test Date: 2022-01-21 Pat Name: Danilo Pitts Department: Room: Gender: Male Collection Teller: : 1975 Requested By: Ramiro Medel Order Number: [id number] Ezra MD: Caitie Vazquez M.D. Measurements Intervals [place] Rate: 66 P: 47 NE: 156 QRS: 16 QRSD: 102 T: 62 QT: 374 QTc: 393 Interpretive Statements SINUS RHYTHM Compared to ECG 01/07/2021 22:24:02 Sinus bradycardia no longer present Electronically Signed On 01-22-2022 20:14:39 CDT by Caitie Vazquez M.D. [email or web address]
--- NOTE | 2022-01-21 19:32 | XRR_ITS ---
PROCEDURE INFORMATION: Exam: XR Chest Exam date and time: 01/21/2022 6:38 PM Age: 46 years old Clinical indication: Cough; Additional info: SOB TECHNIQUE: Imaging protocol: XR of the chest. Views: 1 view. COMPARISON: CR XR chest 2V* [id number] 06/09/2021 2:47 PM FINDINGS: Lungs: Unremarkable. No consolidation. Pleural spaces: Unremarkable. No pleural effusion. No pneumothorax. Heart/Mediastinum: Unremarkable. No cardiomegaly. Bones/joints: Unremarkable. XR/XR chest 1V portable [id number] IMPRESSION: No acute findings.
--- NOTE | 2022-01-21 19:40 | ED_ITS ---
HPI - COVID General: Chief Complaint: COVID symptoms Stated Complaint: Cough, Fever, SOB, Flu Time Seen by Provider: 01/21/22 19:31 Source: patient Mode of arrival: ambulatory Limitations: no limitations Triage information: Has fever, cough or shortness of breath . No known COVID + exposure last 14 days History of Present Illness: 46-year-old male states he does have a history of asthma states that since last Saturday has had cough fevers body aches states he saw his PCP on was diagnosed with influenza. He states that he is continue to have a cough and wheezing has not been feeling any better. He has had no vomiting no diarrhea states his fevers have subsided just does continue to have a dry cough with some dyspnea. He is also had some increased wheezing does use albuterol at home. COVID 19 common symptoms: positive fever(s), chills, non-productive cough and body aches; negative headache(s), throat pain, nausea, vomiting or diarrhea COVID 19 other sytmptoms: negative chest pain COVID Results: No Data to Display Review of Systems Const: Reports: fever(s), chills and body aches Eyes: Denies: blurry vision or eye discomfort ENMT: Denies: throat pain or dental pain Card: Denies: chest pain Resp: Reports: non-productive cough and wheezing GI: Denies: abdominal pain, nausea, vomiting or diarrhea : Denies: dysuria Musc: Denies: neck pain or back pain Skin/Breast: Denies: rash Neuro: Denies: headache(s) Psych: Denies: depression Isaiah/Lymph: Denies: easy bruising All/Imm: Denies: urticaria PFSH ED PFSH: Medical History Abdominal pain Asthma Fatigue Hypertension screen Lower respiratory infection Medication management Vitamin D deficiency Family History Father Cancer colon Social History Alcohol intake: never Physical Exam Const: COMMON NORMALS: no acute distress, patient oriented x3 and healthy appearing HENMT: COMMON NORMALS: normocephalic and atraumatic HEAD & SCALP: normocephalic and atraumatic Eye: COMMON NORMALS: Equal, round and reactive pupils present and EOMs intact bilaterally PUPIL: Yes Equal, round and reactive pupils present Neck/C-Spine: COMMON NORMALS: full ROM and supple Chest: COMMONS NORMALS: normal inspection of the chest and normal palpation of entire chest wall Resp: COMMON NORMALS: normal respiratory effort, No retractions, No use of accessory muscles and clear to auscultation bilaterally AUSCULTATION: clear to auscultation bilaterally and wheezes Cardio: COMMON NORMALS: regular rate, regular rhythm and No murmurs present (Cardio) RATE: regular rate RHYTHM: regular rhythm GI: COMMON NORMALS: Normal to inspection, nondistended, normoactive bowel sounds present, Soft to palpation, non-tender and no masses PALPATION: Yes Soft to palpation Extremity: COMMON NORMALS: normal to inspection and full ROM Neuro: COMMON NORMALS: patient oriented x3, moves all extremities and no focal motor deficits Psych: COMMON NORMALS: mental status grossly normal, Normal thought process present and cooperative THOUGHT PROCESS: Normal thought process present Skin: COMMON NORMALS: no rashes or lesions noted and no wounds GENERAL SKIN EXAM: no rashes or lesions noted Course Vital Signs: Vital signs: Vital Signs Temperature 98.2 F 01/21/22 17:41 Pulse Rate 68 01/21/22 17:41 Respiratory Rate 16 01/21/22 17:41 Blood Pressure 146/106 01/21/22 17:41 Pulse Oximetry 98 01/21/22 19:51 MDM - COVID Medical Decision Making Patient presents with influenza likely causing his asthma to be worse he is well-appearing here no signs ammonia blood works normal in minimal distress pulse ox here is normal patient given breathing treatment Decadron feels improved he is stable for discharge is to return if worsening he understands agrees to plan. Lab Data : 01/21/22 19:49 01/21/22 19:49 Radiology Impressions Chest X-Ray 01/21/22 19:32 IMPRESSION: No acute findings. Laboratory Results WBC 4.3 10^3/uL (4.0-10.0) 01/21/22 19:49 RBC 4.82 10^6/uL (4.1-5.3) 01/21/22 19:49 Hgb 15.6 g/dL (11.7-16.6) 01/21/22 19:49 Hct 47.5 % (42.0-52.0) 01/21/22 19:49 MCV 98.5 fl (80-94) H 01/21/22 19:49 MCH 32.4 pg (28.0-34.0) 01/21/22 19:49 MCHC 32.8 g/dL (30.0-36.0) 01/21/22 19:49 RDW 12.0 % (12.1-15.1) L 01/21/22 19:49 Plt Count 223 10^3/cmm (130-400) 01/21/22 19:49 MPV 9.6 fL (7.4-10.4) 01/21/22 19:49 Neut % (Auto) 40.8 % 01/21/22 19:49 Lymph % (Auto) 43.5 % 01/21/22 19:49 [place] % (Auto) 11.6 % 01/21/22 19:49 Eos % (Auto) 3.2 % 01/21/22 19:49 Baso % (Auto) 0.7 % 01/21/22 19:49 Neut # (Auto) 1.76 10^3/uL (1.8-7.7) L 01/21/22 19:49 Lymph # (Auto) 1.9 10^3/uL (0.8-4.8) 01/21/22 19:49 [place] # (Auto) 0.5 10^3/uL (0.2-0.9) 01/21/22 19:49 Eos # (Auto) 0.1 10^3/uL (0.0-0.8) 01/21/22 19:49 Baso # (Auto) 0.0 10^3/uL (0.0-0.1) 01/21/22 19:49 Nucleated RBC % (auto) 0 % 01/21/22 19:49 Nucleated RBCs # 0.0 /100WBC 01/21/22 19:49 Sodium 139 mmol/L (136-145) 01/21/22 19:49 Potassium 4.2 mmol/L (3.5-5.1) 01/21/22 19:49 Chloride 105 mmol/L (98-107) 01/21/22 19:49 Carbon Dioxide 21 mmol/L (22-29) L 01/21/22 19:49 Anion Gap 17.2 (5-19) 01/21/22 19:49 BUN 12 mg/dL (6-20) 01/21/22 19:49 Creatinine 1.0 mg/dL (0.7-1.2) 01/21/22 19:49 GFR Calculation 79.8 mL/min (90-130) L 01/21/22 19:49 Glucose 144 mg/dL (65-115) H 01/21/22 19:49 Calculated Osmolality 290 mOsm/kg (285-295) 01/21/22 19:49 Calcium 9.5 mg/dL (8.5-10.5) 01/21/22 19:49 Total Bilirubin 0.3 mg/dL (0.15-1.2) 01/21/22 19:49 AST 26 U/L (0-40) 01/21/22 19:49 ALT 34 U/L (0-41) 01/21/22 19:49 Alkaline Phosphatase 107 IU/L (40-130) 01/21/22 19:49 Total Protein 7.0 g/dL (6.6-8.7) 01/21/22 19:49 Albumin 4.4 g/dL (3.5-5.2) 01/21/22 19:49 Globulin 2.6 g/dL (1.3-4.6) 01/21/22 19:49 No Data to Display Discharge Plan Discharge Patient Disposition: Home Clinical Impression: Influenza Condition: Stable Prescriptions: No Action montelukast [Singulair] 10 mg tablet 10 mg PO DAILY 0RF esomeprazole magnesium [Nexium] 40 mg capsule,delayed release(DR/EC) 40 mg PO DAILY Qty: 30 2RF albuterol sulfate 90 mcg/actuation HFA aerosol inhaler 2 puff inhalation Q6H PRN (Reason: Shortness Of Breath) Qty: 6.7 1RF albuterol sulfate [Ventolin HFA] 90 mcg/actuation HFA aerosol inhaler 2 puff inhalation Q6H PRN (Reason: shortness of breath or wheezing) Qty: 8 0RF methylprednisolone [Medrol (Davy)] 4 mg tablets,dose pack See Rx Instructions PO PER PKG DIR Qty: 21 0RF Rx Instructions: PO PER PKG DIR budesonide-formoterol [Symbicort] 160-4.5 mcg/actuation HFA aerosol inhaler 2 puff inhalation BID 0RF dicyclomine 10 mg capsule 10 mg PO TID Qty: 30 0RF Discharge Orders: Discharge ED (Routine); Ordered 01/21/22 Ordered By: Kj Lucas Referrals: Debbie Villafana FNP [Primary Care Provider] - 1-3 days Discharge Diet: Advance as tolerated Discharge Activity: Resume usual activity Patient Instructions: Influenza (ED) Coding Level of Care Code ED Computerized Mill Recorder for Chg Fwd Exam Comprehensive
[2022-01-21] MEDS: dexamethasone 10 mg/mL INJ IVP (19:47)
[2022-01-21] MEDS: sodium chloride 0.9% 1,000 ML 999 ML IV (19:48)
[2022-01-21 19:51] VITALS: O2SAT 98
[2022-01-21 19:54] LABS: Basophils % 0.7 %; Eosinophils # 0.1 10^3/uL (0.0-0.8); Eosinophils % 3.2 %; Hematocrit 47.5 % (42.0-52.0); Hemoglobin 15.6 g/dL (11.7-16.6); Lymphocytes # 1.9 10^3/uL (0.8-4.8); Lymphocytes % 43.5 %; Mean Corpuscular HGB Conc 32.8 g/dL (30.0-36.0); Mean Corpuscular Hemoglobin 32.4 pg (28.0-34.0); Mean Corpuscular Volume 98.5 fl (80-94); Mean Platelet Volume 9.6 fL (7.4-10.4); Monocytes # 0.5 10^3/uL (0.2-0.9); Monocytes % 11.6 %; Neutrophils # 1.76 10^3/uL (1.8-7.7); Neutrophils % 40.8 %; Nucleated Red Blood Cells % 0 %; Platelet Count 223 10^3/cmm (130-400); Red Blood Count 4.82 10^6/uL (4.1-5.3); White Blood Count 4.3 10^3/uL (4.0-10.0)
[2022-01-21 20:57] LABS: Alanine Aminotransferase 34 U/L (0-41); Albumin Level 4.4 g/dL (3.5-5.2); Alkaline Phosphatase 107 IU/L (40-130); Aspartate Amino Transferase 26 U/L (0-40); Blood Urea Nitrogen 12 mg/dL (6-20); Calcium 9.5 mg/dL (8.5-10.5); Carbon Dioxide 21 mmol/L (22-29); Chloride 105 mmol/L (98-107); Globulin 2.6 g/dL (1.3-4.6); Glomerular Filtration Rate 79.8 mL/min (90-130); Glucose 144 mg/dL (65-115); Osmolality Calculated 290 mOsm/kg (285-295); Sodium 139 mmol/L (136-145); Total Bilirubin 0.3 mg/dL (0.15-1.2)
[2022-01-21] MEDS: ipratropium-albuterol 3 mL Neb INHALATION (21:00)
[2022-01-21 21:02] LABS: Anion Gap 17.2 (5-19); Potassium 4.2 mmol/L (3.5-5.1)
[2022-01-21 21:04] VITALS: PULSE 57; RESP 16; O2SAT 98
[2022-01-21 21:07] VITALS: PULSE 59; RESP 16; O2SAT 97
[2022-01-21 21:09] VITALS: BP 122/65; PULSE 67; RESP 16; O2SAT 95
== END 2022-01-21 21:10 | disposition home or self-care (01) ==
PROVIDERS: Emergency Provider Emergency Medicine; PCP Nurse Practitioner Family
DX: J11.1 Influenza due to unidentified influenza virus with other respiratory manifestations (principal)
CPT/HCPCS: 71045; 80053; 85025; 93005; 94640; 96361; 96374; 99284; J1100; J7030

== ENCOUNTER → 2022-07-31 15:04 | Outpatient (BNVA) | payer SELFPAY | PROVIDERS: PCP Nurse Practitioner Family; Visit Provider Nurse Practitioner Family | DX: Z20.822 Contact with and (suspected) exposure to COVID-19 (principal); J45.909 Unspecified asthma, uncomplicated; J06.9 Acute upper respiratory infection, unspecified | CPT/HCPCS: 87426 ==

== ENCOUNTER → 2025-07-06 11:25 | Outpatient (BNVA) | payer OTHER, SELFPAY | PROVIDERS: PCP Nurse Practitioner Family; Visit Provider Nurse Practitioner Family | DX: I10 Essential (primary) hypertension (principal); R53.83 Other fatigue | CPT/HCPCS: 80053; 80061; 82652; 83036; 84403; 84443; 85025 ==